=== PATIENT | female | born 2000 | race African-American/Black ===

== ENCOUNTER 2024-12-08 05:01 | Emergency (ER) | payer MEDICAID, OTHER ==
[~2024-12-08] VITALS: Ht 170.2 cm; Wt 67.1 kg
[~2024-12-08 05:01] MED LIST: AZITTAB PO
[2024-12-08 05:03] VITALS: BP 130/86; PULSE 77; RESP 16; TEMP 98.5; O2SAT 100
--- NOTE | 2024-12-08 05:13 | ED.PDOC ---
Eye-HPI HPI Comments PT STATES SHE HAS TWO BUMPS IN ROOF OF MOUTH X2 DAYS PAIN DIFFICULTY EATING. DENIES FEVERS, CHILLS, N/V. Chief Complaint: Face pain Time Seen by MD: 05:05 Primary Care Provider: LAURA Reviewed Notes: Nurses Notes, Medications, Allergies Allergies: Uncoded Allergies: PCN (Allergy, 08/16/09) PENICILLIN (Allergy, 08/25/10) Home Meds Active Scripts Lidocaine HCl (Mouth-Throat) (Lidocaine HCl Viscous) 2 % Aracelis, 5 ML MT BID PRN for 4 Days, #40 ML Prov:CATARINA LOREZNO [facility] 12/08/24 Valacyclovir Hcl (Valtrex) 1 Gm Tab, 2 TAB PO BID for 1 Day, #4 TAB Prov:CATARINA LORENZO [facility] 12/08/24 Azithromycin (Zithromax Z-Sharan) 250 Mg Tab, 250 MG PO DAILY for 5 Days, #6 TAB TAke 500mg PO daily x1 on Day 1. Take 250mg PO QD on days 2-4. Prov:DOMINGA LOPEZ [facility] 03/26/23 Information Source: Patient Mode of Arrival: Ambulatory Past Medical History PAST MEDICAL HISTORY: Denies Surgical History: Denies all surgeries BUGGY MAN History: No Pertinent BUGGY MAN History Family History Family History: Unknown Social History Smoker: Non-Smoker Alcohol: Denies ETOH Use Drugs: Denies Drug Use Lives In: Home All Other Systems: Reviewed and Negative (SEE HPI) Physical Exam General Appearance: No Apparent Distress, Normal HEENT: Pharynx Normal, TMs Normal, Other (SORES POSTERIOR PHARYNX) Neck: Full Range of Motion, Non-Tender Respiratory: Lungs Clear, No Respiratory Distress, Normal Breath Sounds Cardiovascular: No Edema, No JVD, No Murmur, No Gallop, Normal Peripheral Pulses, Regular Rate/Rhythm Breast Exam: Deferred Gastrointestinal: No Organomegaly, Non Tender, No Pulsatile Mass, Normal Bowel Sounds, Soft Genitalia: Deferred Pelvic: Deferred Rectal: Deferred Extremities: Normal capillary refill, Non-tender Musculoskeletal : Apperance: Normal Neurologic: Alert, No Motor Deficits, Normal Affect, Normal Mood, No Sensory Deficits Cerebellar Function: Normal Reflexes: NOT DONE Skin: Dry, Normal Color, Warm Lymphatic: No Adenopathy Was a procedure done? Was a procedure done?: No EENT DIFF Eye: N/A Ear: N/A Nose: N/A Mouth: Herpangina, Herpes Simplex, Thrush X-Ray, Labs, Meds, VS Vital Signs Date Time Temp Pulse Resp B/P (MAP) Pulse Ox O2 Delivery O2 Flow Rate FiO2 12/08/24 05:03 98.5 77 16 130/86 100 98.5 Time of 1ST Reevaluation: 05:13 Reevaluation 1ST: Unchanged Time of 2ND Reevaluation: 05:20 Reevaluation 2ND: Unchanged Patient Education/Counseling: Diagnosis, Treatment, Prognosis, Need For Follow Up Family Education/Counseling: No Family Present SEPSIS Sepsis Screen Date sepsis recognized/suspect: Dec 08, 2024 Time Sepsis recognized/suspect: 0503 Recent Procedure: No On Antibiotic Therapy: No Respiratory Rate >20: No Heart Rate >90: No Temp<36 C (96.8 F) or >38.3 C: No SBP <90 or MAP <65 mmHG: No New Acute Mental Status Change: No Is the patient on CPAP, BIPAP,: No Vital Signs Date Time Temp Pulse Resp B/P (MAP) Pulse Ox O2 Delivery O2 Flow Rate FiO2 12/08/24 05:03 98.5 77 16 130/86 100 98.5 Departure 1 Departure Time of Disposition: 05:23 Impression: Primary Impression: Stomatitis Disposition: 01 HOME / SELF CARE / HOMELESS Condition: Stable e-Prescriptions Lidocaine HCl (Mouth-Throat) (Lidocaine HCl Viscous) 2 % Aracelis 5 ML MT BID PRN for 4 Days, #40 ML Prov: CATARINA LORENZO 12/08/24 Valacyclovir Hcl (Valtrex) 1 Gm Tab 2 TAB PO BID for 1 Day, #4 TAB Prov: CATARINA LORENZO 12/08/24 Discharged With: Self Critical Care Note Critical Care Time?: No Stability Stability form required: No CATARINA LORENZO Dec 08, 2024 05:13
[2024-12-08] MEDS ORDERED: VALA1TAB PO (05:28)
[2024-12-08] MEDS ORDERED: LIDO2SOL26 MT (05:28)
== END 2024-12-08 05:51 | disposition home or self-care (01) ==
LOC: ER 05:01
DX: K12.1 Other forms of stomatitis (principal); Z88.0 Allergy status to penicillin; Z79.624 Long term (current) use of inhibitors of nucleotide synthesis; Z79.899 Other long term (current) drug therapy

== ENCOUNTER 2025-03-25 21:29 | Emergency (ER) | payer BC, MEDICAID ==
[~2025-03-25] VITALS: Ht 170.2 cm; Wt 67.4 kg
[2025-03-25 21:38] VITALS: BP 101/67; PULSE 92; RESP 18; TEMP 98.2; O2SAT 97
--- NOTE | 2025-03-25 22:19 | ED.PDOC ---
SOCIAL SERVICES HPI Comments 24 year-old female presents to the ED with a chief complaint of pelvic pain and vaginal discharge post-intercourse X1 hour ago. Patient is currently X5 weeks , . Patient reports a social Hx of smoking. Patient denies symptoms of vaginal bleeding, N/V/D, fever, or chills. Chief Complaint: Pelvic Pain Time Seen by MD: 21:57 Reviewed Notes: Medications, Allergies Allergies: Uncoded Allergies: PCN (Allergy, 08/16/09) PENICILLIN (Allergy, 08/25/10) Home Meds Active Scripts Azithromycin (Zithromax Z-Sharan) 250 Mg Tab, 250 MG PO DAILY for 5 Days, #6 TAB TAke 500mg PO daily x1 on Day 1. Take 250mg PO QD on days 2-4. Prov:DOMINGA LOPEZ 03/26/23 Information Source: Patient Mode of Arrival: Ambulatory Timing: Minutes Severity: Mild Onset Of Mass/Bleeding: Following [place] Sexual Activity: Sexually Active, Penetration Location: Vaginal Associated Signs and Symptoms: Vaginal Discharge Past Medical History PAST MEDICAL HISTORY: Denies Surgical History: Denies all surgeries INSPECTOR DIALS History: No Pertinent INSPECTOR DIALS History Family History Family History: Unknown Social History Smoker: Non-Smoker Alcohol: Denies ETOH Use Drugs: Denies Drug Use Lives In: Home Constitutional: denies: chills, diaphoresis, fatigue, fever, malaise, sweats, weakness, others EENTM: denies: blurred vision, double vision, ear bleeding, ear discharge, ear drainage, ear pain, ear ringing, eye pain, eye redness, hearing loss, mouth pain, mouth swelling, nasal discharge, nose bleeding, nose congestion, nose pain, photophobia, tearing, throat pain, throat swelling, voice changes, others Respiratory: denies: cough, hemoptysis, orthopnea, SOB at rest, shortness of breath, SOB with excertion, stridor, wheezing, others Cardiovascular: denies: chest pain, dizzy spells, diaphoresis, Dyspnea on exertion, edema, irregular heart beat, left arm pain, lightheadedness, palpitations, PND, syncope, others Gastrointestinal: denies: abdomen distended, abdominal pain, blood streaked bowels, constipated, diarrhea, dysphagia, difficulty swallowing, hematemesis, melena, nausea, poor appetite, poor fluid intake, rectal bleeding, rectal pain, vomiting, others Genitourinary: reports: , others (pelvic pain and vaginal discharge ); denies: abnormal vagina bleeding, burning, dyspareunia, dysuria, flank pain, frequency, hematuria, incontinence, pain, vagina discharge, urgency Neurological: denies: dizziness, fainting, headache, left sided numbness, left sided weakness, numbness, paresthesia, pre-existing deficit, right sided numbness, right sided weakness, seizure, speech problems, tingling, tremors, weakness, others Musculoskeletal: denies: back pain, gout, joint pain, joint swelling, muscle pain, muscle stiffness, neck pain, others Integumetry: denies: bruises, change in color, change in hair/nails, dryness, laceration, lesions, lumps, rash, wounds, others Hematologic/Lymphatic: denies: anemia, blood clots, easy bleeding, easy bruising, swollen glands, others Endocrine: denies: excessive hunger, excessive sweating, excessive thirst, excessive urination, flushing, intolerance to cold, intolerance to heat, unexplained weight gain, unexplained weight loss, others Psychiatric: denies: anxiety, bipolar disorder, depression, hopeless, panic disorder, schizophrenia, sleepless, suicidal, others All Other Systems: Reviewed and Negative Physical Exam General Appearance: No Apparent Distress, Normal HEENT: Normal ENT Inspection, Pharynx Normal, TMs Normal Neck: Full Range of Motion, Non-Tender, Normal, Normal Inspection Respiratory: Chest Non-Tender, Lungs Clear, No Accessory Muscle Use, No Respiratory Distress, Normal Breath Sounds Cardiovascular: No Edema, No JVD, No Murmur, No Gallop, Normal Peripheral Pulses, Regular Rate/Rhythm Breast Exam: Deferred Gastrointestinal: No Organomegaly, No Pulsatile Mass, Normal Bowel Sounds, Soft, Tenderness (suprapubic tenderness ) Genitalia: Deferred Pelvic: Deferred Rectal: Deferred Extremities: No calf tenderness, Normal capillary refill, Normal inspection, Normal range of motion, Non-tender, No pedal edema Musculoskeletal : Apperance: Normal Neurologic: Alert, job captain II-XII nml as Tested, No Motor Deficits, Normal Affect, Normal Mood, No Sensory Deficits Cerebellar Function: Normal Reflexes: Normal Skin: Dry, Normal Color, Warm Lymphatic: No Adenopathy Was a procedure done? Was a procedure done?: No Differential Diagnosis (INSPECTOR DIALS) Vaginal Bleeding: - Threatened, Hormonal, UTI, Vaginitis Vaginal Discharge: X-Ray, Labs, Meds, VS Vital Signs Date Time Temp Pulse Resp B/P (MAP) Pulse Ox O2 Delivery O2 Flow Rate FiO2 03/25/25 21:38 98.2 92 18 101/67 (78) 97 98.2 03/25/25 21:37 98.2 81 18 101/67 96 98.2 Lab Test 03/25/25 22:42 Range/Units Urine Color Light-yellow Yellow Urine Clarity Clear Clear Urine pH 7.0 5.0-9.0 Urine Specific [place] 1.024 1.001-1.035 Urine Protein Negative Negative Urine Ketones Negative Negative Urine Blood Negative Negative /uL Urine Nitrite Negative Negative Urine Bilirubin Negative Negative Urine Urobilinogen 2 H Negative mg/dL Urine Leukocyte Esterase Negative Negative /uL Urine RBC None seen 0 - 4 /hpf Urine Microscopic WBC < 1 0-5 /HPF Urine Squamous Epithelial Cells Few <5 /hpf Urine Bacteria None seen None Seen /hpf Urine Sperm Present None Seen /hpf Urine Glucose Normal Normal mg/dL Urine Test Positive Negative X-Ray, Labs, Meds, VS Comment Previous history reviewed: N/A The following tests were ordered, and results were reviewed by me: UA, Test Additional Information was gathered from interviewing the following independent historians: N/A I reviewed and agreed with the following test results read by other providers: N/A I discussed treatment and results with medical personnel and: Patient Comprehensive systems review obtained and negative except for what is stated in the HPI. Time of 1ST Reevaluation: 22:26 Reevaluation 1ST: Unchanged Patient Education/Counseling: Diagnosis, Treatment Family Education/Counseling: No Family Present Comments Patient presented reporting being five weeks in has pelvic pain after intercourse. Pelvic exam was normal there is no signs of trauma. There is no discharge no lesions no bleeding. Her test is negative. Pelvic exam was done with a female kitchen hand. On my reassessment of the patient she had eloped. Departure 1 Departure Time of Disposition: 05:46 Impression: Primary Impression: Pelvic pain Disposition: LEFT AWOL/ELOPED Condition: Other (Unknown) Critical Care Note Critical Care Time?: No Stability Stability form required: No Heart Score Heart Score: Heart Score Response (Comments) Value History N/A 0 EKG N/A 0 Age N/A 0 Risk Factors N/A 0 Troponin N/A 0 Total 0 I personally scribed for DANIELA BOONE MD ([facility]) on 03/25/25 at 22:19. Electronically submitted by Benita Navarro ([email or web address]). I personally scribed for DANIELA BOONE MD ([facility]) on 03/25/25 at 22:21. Electronically submitted by Benita Navarro ([email or web address]). DANIELA BOONE MD Mar 25, 2025 22:19
[2025-03-25 22:58] LABS: Urine Protein, UAD Negative (Negative)
== END 2025-03-25 22:56 | disposition left against medical advice (07) ==
LOC: ER 21:29
DX: O26.891 Other specified pregnancy related conditions, first trimester (principal); Z3A.01 Less than 8 weeks gestation of pregnancy; Z79.899 Other long term (current) drug therapy; Z88.0 Allergy status to penicillin
CPT/HCPCS: 81001; 81025